=== PATIENT | female | born 1990 | race Caucasian/White ===

== ENCOUNTER 2019-04-04 12:29 | Inpatient (IN) ==
[2019-04-04] MEDS ORDERED: Ondansetron ODT 4 MG TAB.RAPDIS SL ONE (13:20)
[2019-04-04] MEDS ORDERED: Ketorolac 15 MG/ML VIAL IM ONE (13:20)
[2019-04-04] MEDS ORDERED: Tdap (Boostrix) Vaccine 0.5 ML SYRINGE IM ONE (13:20)
[2019-04-04] MEDS ORDERED: Piperacillin/Tazobactam 3.375 GM in 0.9 % Sodium Chloride Mini Bag 100 ML IVPB ONE (13:22)
--- NOTE | 2019-04-04 13:25 | Emergency Department Note ---
Disposition Clinical Impression: Cellulitis Qualifiers: Site of cellulitis: extremity Site of cellulitis of extremity: finger Laterality: left Qualified Code(s): L03.012 - Cellulitis of left finger Disposition: Admitted As Inpatient Condition: Fair Referrals: Jean Polk PAC [Primary Care Provider] - Forms: ED Satisfaction Letter Time of Disposition: 15:00 Extremity Problem HPI - General Chief complaint: ED Extremity Problem,Nontraumatic Stated complaint: Left pointer finger black Time Seen by Provider: 04/04/19 12:42 Source: patient Mode of arrival: private vehicle Limitations: no limitations Nursing Notes Reviewed: Yes Vital Signs Reviewed: Yes - History of Present Illness Pt Subjective Complaint: extremity pain, extremity swelling Onset (ago): month(s) Consistency: Worsening Injury Location: left, upper extremity (index finger) Pain Scale: 10 Quality: burning, sharp Radiation: proximal Improves with: nothing Worsens with: range of motion, palpation, use Associated symptoms: Reports: fever, change in appearance, swelling, redness. Denies: chest pain, shortness of breath, abdominal pain Context: other (Hx of IVDA, evaluated here on Sunday by Ortho. Was supposed to be admitted but refused. Home on Bactrim. was supposed to F/U in office on but was arrested. Arrives in police custody.) - Related Data Home Medications Medication Instructions Recorded Confirmed Buprenorphine HCl/Naloxone HCl 1 each SL BID 04/04/19 04/04/19 [Suboxone 8 mg-2 mg Sl Film] Gabapentin [Neurontin] 800 mg PO TID 04/04/19 04/04/19 Allergies Allergy/AdvReac Type Severity Reaction Status Date / Time sertraline [From Zoloft] AdvReac Hallucinati Verified 03/31/19 18:05 ng All systems ED: reviewed and negative except as stated. Review of Systems: As Per HPI Constitutional: Reports: fever. Denies: chills, weakness Cardiovascular: Denies: chest pain, palpitations Respiratory: Denies: dyspnea Gastrointestinal: Reports: nausea. Denies: abdominal pain, vomiting, diarrhea Musculoskeletal: Reports: as per HPI, joint swelling, arthralgia. Denies: back pain, neck pain Neurological: Reports: numbness (index finger). Denies: weakness Hematological/Lymphatic: Denies: easy bleeding, easy bruising, lymphadenopathy Past Medical History - Past Medical History Attestation: Yes The following information was validated with the patient. 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 Absent: scleral icterus, conjunctival injection, periorbital swelling - ENT ENT exam: mucous membranes moist - Neck Neck exam: Present: normal inspection, full ROM, trachea midline. Absent: meningismus - Respiratory Respiratory exam: Present: normal lung sounds bilaterally. Absent: respiratory distress - Cardiovascular Cardiovascular exam: Present: regular rate, normal rhythm, normal heart sounds. Absent: systolic murmur, diastolic murmur - Extremities Exam Extremities exam: Present: tenderness, normal capillary refill - Expanded Upper Extremity Exam Shoulder exam: Present: normal inspection, full ROM Arm exam: Present: normal inspection Elbow exam: Present: normal inspection, full ROM Forearm/Wrist exam: Present: normal inspection, full ROM. Absent: tenderness, swelling, erythema Hand exam: Present: tenderness, swelling, erythema Hand L/R front image: 1 - other (necrotic appearing, decreased sensation, dry) Hand L/R back image: 1 - necrotic appearing, decreased sensation, dry 2 - erythematous, mild edema Neuromotor exam: Normal: wrist extension, thumb opposition, thumb IP flexion, thumb adduction, fingers 2-5 abduction Neurosensory exam: Normal: radial nerve, ulnar nerve, median nerve Hand tendon exam: Normal: flexor digitorum profundus (location), flexor digitorum superficialis (location), extensor tendon (location) Vascular exam: Normal: capillary refill, radial pulse, ulnar pulse - Neurological Exam Neurological exam: Present: alert, oriented X3, CN II-XII intact - Psychiatric Psychiatric exam: Present: normal affect, normal mood - Skin Skin exam: Present: warm, dry, intact, normal color Course Course Narrative: Patient was seen here earlier this week by ortho while in the ED. She was supposed follow-up on , but instead was arrested. She returns today in the custody of a electric meter tester helper's deputy. She complains of increased pain. The entire finger is now edematous and mildly erythematous. The necrotic appearance of the distal portion is unchanged. She has decreased sensation to light touch in the distal phalanx as well. She describes fever, but is currently afebrile. Vitals are normal. Labs and repeat x-ray ordered. Antibiotics ordered PICC team called as patient has very poor vascular access and will likely need long-term IV antibiotics. Case discussed with Dr. Osborne. He recommends admission and he will see the patient today. He will most likely take her to the OR today. Case discussed with hospitalist. Patient admitted Vital Signs Temperature 98.6 F 04/04/19 12:36 Pulse Rate 80 04/04/19 12:36 Respiratory Rate 18 04/04/19 12:36 Blood Pressure 145/89 04/04/19 12:36 O2 Sat by Pulse Oximetry 99 04/04/19 12:36 Temperature 98.6 F 04/04/19 12:36 Pulse Rate 80 04/04/19 12:36 Respiratory Rate 18 04/04/19 12:36 Blood Pressure 145/89 04/04/19 12:36 O2 Sat by Pulse Oximetry 99 04/04/19 12:36 Oxygen Delivery Oxygen Delivery Room Air
[2019-04-04 15:10] LABS: Basophils % 0.3 %; Eosinophils % 0.1 %; Hematocrit 36.2 % (35.3-44.9); Hemoglobin 11.7 g/dL (11.5-15.4); Immature Granulocytes % 0.3 % (0-4); Lymphocytes # 2.8 K/mcL (0.6-4.6); Lymphocytes % 31.6 %; Mean Corpuscular HGB Conc 32.3 g/dL (31.6-35.5); Mean Corpuscular Hemoglobin 26.9 pg (28.0-33.3); Mean Corpuscular Volume 83.2 fL (83.0-100.0); Mean Platelet Volume 9.5 fL (9.4-12.4); Monocytes # 0.6 K/mcL (0.0-1.3); Neutrophils # 5.4 K/mcL (1.6-8.9); Platelet Count 320 K/mcL (140-400); Red Blood Count 4.35 M/mcL (3.82-4.97); Red Cell Distribution Width 15.6 % (11.5-14.5); Segmented Neutrophils % 60.7 %
[2019-04-04 15:18] LABS: INR 1.2; Prothrombin Time 13.1 Seconds (9.4-12.1)
[2019-04-04] MEDS ORDERED: Naloxone 0.4 MG/ML INJ IVP PRN ×2 (15:24→20:03)
[2019-04-04 15:29] LABS: BUN/Creatinine Ratio 17 (6-26); Blood Urea Nitrogen 8 mg/dL (6-20); Calcium 9.9 mg/dL (8.6-10.3); Carbon Dioxide 25 mEq/L (23-29); Chloride 103 mEq/L (98-107); Glucose 95 mg/dL (70-105); Osmolality,Calculated 282 (280-300); Potassium 3.5 mEq/L (3.5-5.1); Sodium 137 mEq/L (136-145); eGFR For African Americans > 60 (> 60); eGFR For Non-African Americans > 60 (> 60)
[2019-04-04] MEDS ORDERED: 0.9 % Sodium Chloride 1,000 ML IVC SCH (15:30)
--- NOTE | 2019-04-04 15:43 | Internal Med History&Physical ---
Date of Encounter: 04/04/19 Time of Encounter: 15:00 Internal Medicine - H&P: HPI Chief complaint: cellulitis and infection of finger with failed outpatient therapy History of present illness: Ms. Gutiérrez is a 28 year old female with pmh of polysubstance abuse presenting with complaints of an infected left index finger of about 1 month duration. Patient says she had her nails done about a month ago where they glued cosmetic nails to her fingers and she began to have swelling in her left index finger. She called her PCP who gave her a 7 day course of bactrim which she recently completed but she says swelling worsened and she came to the ER, where she was also discharged after being seen by ortho because she wouldn't stay to be admitted. Swelling progressively got worse and she has been having chills and nausea, along with some drainage and discoloration of the finger and that's why she came back to the ER In the ER, she was started on vanc and zosyn and has been seen by ortho. [facility] She is being admitted for further management Past Med Surg Social Fam HX - Past Medical History Medical history: asthma, fibromyalgia Additional medical history: endometriosis Psychiatric history: no psych history - Past Surgical History Surgical History: cholecystectomy, other (Tubes inner ears, laparoscopic fulguration of endometriosis, knee surgery.) Additional surgical history: LEEP,. 3 knee surgeries,. D & C,. tubes in ears. uterine ablasion - Social History Smoking Status: Current every day smoker Smokeless Tobacco Status: No Alcohol use: none Drug use: none - Family History Father Hx Family Cancer: Yes - Additional Family History Additional family history: Family history reviewed and non contributory Internal Medicine - H&P: Meds Gabapentin [Neurontin] 800 mg PO TID 04/04/19 [History] Sulfamethoxazole/Trimeth DS [Bactrim DS] 1 each PO BID 04/04/19 [History] cephALEXin [Keflex] 500 mg PO TID 04/04/19 [History] Allergy/AdvReac Type Severity Reaction Status Date / Time sertraline [From Zoloft] AdvReac Hallucinati Verified 03/31/19 18:05 ng All Systems PM: A 10-system review of systems was performed and is negative for pertinent findings except as documented above in the HPI. - Constitutional Constitutional: no chills, no fever(s), no night sweats - EENT Eyes: no change in vision, no discharge, no pain, no photophobia Ears: no ear discharge, no ear pain, no tinnitus Nose, mouth and throat: no dysphagia, no nasal discharge, no neck pain, no sore throat - Cardiovascular Cardiovascular ROS IM: no chest pain, no diaphoresis, no dyspnea, no lightheadedness, no palpitations, no syncope - Respiratory Respiratory: no cough, no dyspnea, no wheezing, no excessive phlegm production - Gastrointestinal Gastrointestinal: no abdominal pain, no diarrhea, no hematemesis, no hematochezia, no melena, no nausea, no vomiting - Genitourinary Genitourinary: no change in urinary stream, no dysuria, no flank pain, no hematuria - Musculoskeletal Musculoskeletal ROS IM: no numbness, no tingling Additional comments: infected finger - Integumentary Integumentary IM: no rash, no unusual bruising - Neurological Neurological ROS: no confusion, no convulsions, no focal weakness, no numbness, no tingling, no tremor(s) - Hematologic/Lymphatic Hematologic/Lymphatic: no easy bruising - Constitutional Vitals: Temp Pulse Resp BP Pulse Ox 98.6 F 71 16 134/66 100 04/04/19 12:36 04/04/19 15:04 04/04/19 15:04 04/04/19 15:04 04/04/19 15:04 Exam: Discolored left index finger Swollen and tender - Head Head exam: Present: atraumatic, normocephalic - Eye Eye exam: Present: PERRL, conjuntiva pink, sclera anicteric Pupils: Present: PERRL - Neck Neck exam general surgery: Present: supple, trachea midline. Absent: lymphaden opathy - Respiratory Respiratory exam: Present: CTAB. Absent: accessory muscle use, rales, rhonchi, wheezes - Cardiovascular Cardiovascular exam: Present: RRR, +S1, +S2. Absent: diastolic murmur, gallop, rubs, systolic murmur - GI/Abdominal GI/Abdominal exam: Present: normal bowel sounds, soft, no peritoneal signs. Absent: distended, tenderness - Extremities Exam Extremities exam: Present: warm, radial pulses palpable and symmetrical. A bsent: calf tenderness, cyanotic, pedal edema - Neurological Exam Neurological exam: Present: CN II-XII intact, oriented X3, no focal deficits. Absent: pronater drift, facial droop, speech deficit - Skin Skin exam: Present: dry, intact Internal Med - H&P Results - Labs CBC & Chem 7: 04/04/19 14:48 04/04/19 14:48 Labs: Short CBC 04/04/19 Range/Units 14:48 WBC 9.0 (4.3-11.1) K/mcL Hgb 11.7 (11.5-15.4) g/dL Hct 36.2 (35.3-44.9) % Plt Count 320 (140-400) K/mcL Neutrophils # 5.4 (1.6-8.9) K/mcL BMP 04/04/19 14:48 Sodium 137 Potassium 3.5 Chloride 103 Carbon Dioxide 25 BUN 8 Creatinine 0.48 L Glucose 95 Calcium 9.9 - Impressions ITS Impressions Finger X-Ray 04/04/19 13:20 IMPRESSION: 1. Diffuse soft tissue swelling of the left 2nd finger, compatible with underlying infection. No evidence of osteomyelitis or fracture. D/ / 04/04/2019 13:48:21 Moshe Torres MD / [facility] Interpreting Provider: Moshe Torres MD - Assessment and Plan (1) Cellulitis of finger of left hand Current Visit: Yes Status: Acute Assessment and plan: Left finger cellulitis with failed outpatient therapy Obtain cultures. Start on vanc and zosyn Ortho consulted and plan for surgery tonight (2) Polysubstance abuse Current Visit: Yes Status: Acute Assessment and plan: Stable. (3) DVT prophylaxis Current Visit: Yes Status: Acute Assessment and plan: Heparin sc - Time Spent With Patient Total time spent is greater than 50% in coordination of care (as documented) at patient's floor/unit and/or counseling patient:
[2019-04-04] MEDS ORDERED: Acetaminophen 325 MG TABLET PO PRN (15:51)
[2019-04-04] MEDS ORDERED: Ondansetron 4 MG/2 ML VIAL IVP PRN ×2 (15:51→20:03)
[2019-04-04] MEDS ORDERED: Piperacillin/Tazobactam 3.375 GM in 0.9 % Sodium Chloride Mini Bag 100 ML IVPB SCH (16:00)
--- NOTE | 2019-04-04 17:56 | Orthopedic Consult Note ---
Date of Encounter: 04/04/19 Time of Encounter: 17:54 Assessment and Plan (1) Gangrene of finger Current Visit: Yes Status: Acute I did have a long discussion with the patient regarding the diagnosis. She has dry gangrenous changes to the left index finger tip with surrounding redness, likely to some degree cellulitis. I did discuss treatment options and my recommendation is for left index fingertip amputation as I do not feel that the index fingertip is salvageable. I anticipate likely needing to amputate through the middle phalanx distal to the FDS insertion. She may require multiple debridements. The risks discussed included but were not limited to stiffness, bleeding, infection, blood clots, damage to neurovascular structures, tendons, ligaments, and bone. Also discussed was the risk of continued symptoms and possible need for further procedures. I did discuss the anesthesia risks including stroke, heart attack, and . I did discuss the reasonable, foreseeable postoperative course with the patient. The patient did wish to proceed and consent was obtained. I have reviewed each of the pertinent components of this chart and any other pertinent medical component(s) including but not limited to pertinent application of the chief complaint, history of present illness, current medication, medical history, allergies, family history, medical history, surgical history, social history, review of systems, vital signs, and any other portion of the pertinent patient medical record directly or indirectly involved with this patient care that is pertinent based on my medical decision process. JUAN Dejesus History of Present Illness HPI: Ms. Gutiérrez is a 28 year old female currently admitted to the hospitalist. She was seen in the apartment just a couple of days ago where my recommendation was for debridement of the left index fingertip due to a chronic paronychial infection with fingertip necrosis. She did decline management and wished to follow up in the office. She does indicate that she became incarcerated. She returns to the emergency department for further evaluation and management. She complains of isolated pain to the tip of the left index finger, sharp and achy in nature and worse with use and movement and better with rest. There is altered sensation at the tip of the index finger. No other complaints. She denies any feelings of illness. No other numbness, tingling, or other associated signs or symptoms or modifying factors. Past Med Surg Social Fam HX - Past Medical History Medical history: asthma, fibromyalgia Additional medical history: endometriosis Psychiatric history: no psych history - Past Surgical History Surgical History: cholecystectomy, other (Tubes inner ears, laparoscopic ful guration of endometriosis, knee surgery.) Additional surgical history: LEEP,. 3 knee surgeries,. D & C,. tubes in ears. uterine ablasion - Social History Smoking Status: Current every day smoker Smokeless Tobacco Status: No Alcohol use: none Drug use: none - Family History Father Hx Family Cancer: Yes Medications and Allergies Gabapentin [Neurontin] 800 mg PO TID 04/04/19 [History] Sulfamethoxazole/Trimeth DS [Bactrim DS] 1 each PO BID 04/04/19 [History] cephALEXin [Keflex] 500 mg PO TID 04/04/19 [History] Allergy/AdvReac Type Severity Reaction Status Date / Time sertraline [From Zoloft] AdvReac Hallucinati Verified 03/31/19 18:05 ng All Systems Reviewed: Constitutional -The patient denies any fevers, chills, or feelings of illness Musculoskeletal -The patient denies any joint pains, swelling, muscle aches Physical Exam - Constitutional Vitals: Temp Pulse Resp BP Pulse Ox 97.7 F 91 15 125/79 98 04/04/19 16:08 04/04/19 16:08 04/04/19 16:08 04/04/19 16:08 04/04/19 16:08 CONSTITUTIONAL -Vitals reviewed -The patient is well developed, well nourished, well groomed PSYCHIATRIC -Fully alert and oriented -Pleasant mood LEFT UPPER EXTREMITY The left index finger is necrotic at the tip with an increasing margin of dry gangrenous changes to about the level of the distal interphalangeal joint. Mild surrounding redness. Generalized swelling to the index finger. No purulence. Stiffness due to pain and swelling. The tips of the other digits are slightly c ool but with good capillary refill. The patient can actively flex and extend the other digits, extend the thumb, cross the index and long fingers, make an okay sign, and oppose the thumb. The fingertips have normal sensation. Diagnostic Imaging: I did personally review and interpret x-rays left index finger do not show any bony involvement. Results - Labs Result Diagrams: 04/04/19 14:48 04/04/19 14:48 Labs: Abnormal lab results MCH 26.9 pg (28.0-33.3) L 04/04/19 14:48 RDW 15.6 % (11.5-14.5) H 04/04/19 14:48 ESR 21 mm/hr (0-15) H 04/04/19 14:48 PT 13.1 Seconds (9.4-12.1) H 04/04/19 14:48 Creatinine 0.48 mg/dL (0.60-1.20) L 04/04/19 14:48 H & H 04/04/19 Range/Units 14:48 Hgb 11.7 (11.5-15.4) g/dL Hct 36.2 (35.3-44.9) % All other labs normal. Consult Discharge Plan - Plan Referrals: Jean Polk, PAC [Primary Care Provider] -
--- NOTE | 2019-04-04 17:56 | Anesthesia Evaluation PreOp ---
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, POLYSUBSTANCE ABUSE, ON SUBOXONE) Other Medical History: Denies Any Significant HX Anesthesia History: No Prior Anesthetic Complications, Past Anesthesia Test: Negative (04/04) Alcohol Use: none Drug use: none Medications and Allergies Gabapentin [Neurontin] 800 mg PO TID 04/04/19 [History] Sulfamethoxazole/Trimeth DS [Bactrim DS] 1 each PO BID 04/04/19 [History] cephALEXin [Keflex] 500 mg PO TID 04/04/19 [History] Allergy/AdvReac Type Severity Reaction Status Date / Time sertraline [From Zoloft] AdvReac Hallucinati Verified 03/31/19 18:05 ng - Meds/Allergy Pre-op Review Medications Reviewed: Yes Allergies Reviewed: Yes Anesthesia Results - Labs 04/04/19 14:48 04/04/19 14:48 Anesthesia Exam Vital Signs/O2 Sat/Glucose, Most Recent Temp Pulse Resp BP Pulse Ox 97.7 F 91 15 125/79 98 04/04/19 16:08 04/04/19 16:08 04/04/19 16:08 04/04/19 16:08 04/04/19 16:08 Blood Glucose* 124 Weight: 82 KG - BMI 28 NPO (# of Hours): 8 - HEENT Mallampati: I Teeth: Edentulous - Cardiac Rhythm: Regular - Pulmonary Breath Sounds: bilateral Clear Anesthesia Assess/Plan ASA Score: 2 Anesthetic Plan: MAC Monitoring Plan: Standard Monitors Recovery Plan: PACU (PHASE 2 APPROPRIATE)
[2019-04-04] MEDS ORDERED: *HR* Midazolam HCl 2 MG/2 ML VIAL ONE (17:58)
[2019-04-04] MEDS ORDERED: *HR* Propofol 200 MG/20 ML VIAL IVP ONE (17:58)
[2019-04-04] MEDS ORDERED: *HR* Heparin 5,000 UNIT/ML VIAL SQ SCH (18:00)
[2019-04-04] MEDS ORDERED: Dexamethasone 4 MG/ML VIAL ONE (18:06)
[2019-04-04] MEDS ORDERED: Ondansetron 4 MG/2 ML VIAL ONE (18:06)
[2019-04-04] MEDS ORDERED: *HR* FentaNYL (PF) 100 MCG/2 ML VIAL ONE (18:11)
[2019-04-04] MEDS ORDERED: Bupivacaine/EPI 1:200k 0.5%PF 10 ML VIAL ONE (18:16)
[2019-04-04] MEDS ORDERED: Lidocaine/EPI 1:100k 1% 20 ML VIAL ONE (18:16)
[2019-04-04] MEDS ORDERED: Lidocaine 1% 20 ML MDV ONE (18:16)
[2019-04-04] MEDS ORDERED: Lidocaine -MPF 1% 5 ML AMPUL ONE (18:32)
[2019-04-04] MEDS ORDERED: Ketorolac 30 MG/ML VIAL ONE (18:51)
--- NOTE | 2019-04-04 19:22 | Orthopedic Operative Note ---
Date of procedure: 04/04/19 Procedure: OPERATIVE REPORT SURGEON: Eleazar Tavera MD PREOPERATIVE DIAGNOSIS: Left index fingertip gangrene POSTOPERATIVE DIAGNOSIS: Left index fingertip gangrene PROCEDURE: Left index fingertip amputation ANESTHESIA: Gen. anesthesia SPECIMENS: Left index fingertip for permanent in formalin; left index finger swabs PREOPERATIVE NOTE The surgical plan was reviewed with the patient. The risks, benefits, alternatives, and potential complications of this procedure were discussed with the patient including injury to veins, arteries, nerves, tendons, ligaments, and bone. Also discussed were the risks of infection, bleeding, pain, blood clots, the possible need for a blood transfusion, the possible need for further procedures, heart attack, stroke, and . Additional risks include the need for further debridement. All of this was explained in simple terms, and the patient verbalized understanding and wished to proceed. Consent was given to proceed with surgery. PROCEDURE: The patient was seen in the preoperative holding area where the identify and the consent were confirmed. The left index finger was marked. Final questions were answered. The patient was brought back to the operating room and placed supine on the operating room table. A huddle was performed with the patient and all vital surgical team members confirming patient identity, the correct procedure, and the correct operative site. Gen. anesthesia was administered. The operative extremity was prepped and draped in the usual sterile fashion. A surgical time out was performed immediately preceding the incision with all personnel in the operating room to confirm patient identity, the correct opera tive site and extremity, correct radiographic studies, availability of appropriate surgical equipment, and agreement on the planned procedure. The tourniquet was inflated without exsanguination. A fishmouth incision was made just proximal to the area of dry gangrenous changes. Full-thickness flaps were elevated and subperiosteal dissection made on the middle phalanx. Using a sagittal saw the finger is amputated through the bone distal to the insertion of the FDS. The fingertip was placed on the back table for specimen in formalin. The wound bed was swabbed for culture. The wound bed was healthy in appearance without any necrotic tissue or concern for significant infection. 3 L of saline were washed through the wound bed and this was then loosely closed over a small [place] drain without tension. A soft, sterile dressing was applied. The instrument, sponge, and needle counts were correct after wound closure. POST OPERATIVE PLAN: Daily dressing changes, anticipate removing the [place] drain on Sunday. Antibiotics per the primary team. Was there an surgical assistant present: No Estimated blood loss (cc): 1
--- NOTE | 2019-04-04 20:04 | Anesthesia Evaluation Post Op ---
Date of Encounter: 04/04/19 Time of Encounter: 19:48 - Discharge PostOp Status: Transfer Patient to floor (Patient's vital signs have been reviewed. Patient is stable postoperatively and has adequately recovered from anesthesia. Patient is determined to have stable airway patency and respiratory function including respiratory rate and oxygen saturation. Patient has a stable heart rate, blood pressure and adequate hydration. Patients mental status is acceptable. Patients temperature is appropriate. Pain and nausea are adequately controlled)
[2019-04-04] MEDS: Gabapentin 400 MG CAPSULE PO SCH (20:52)
[2019-04-04] MEDS: 0.9 % Sodium Chloride 1,000 ML IVC SCH (20:54)
[2019-04-04] MEDS ORDERED: Gabapentin 400 MG CAPSULE PO SCH (21:00)
[2019-04-04] MEDS ORDERED: NON-FORMULARY MEDICATION 1 EACH EACH (Buprenorphine Hcl/Naloxone Hcl [Suboxone 8 Mg-2 Mg S SL SCH (21:00)
[2019-04-04] MEDS: Piperacillin/Tazobactam 3.375 GM in 0.9 % Sodium Chloride Mini Bag 100 ML IVPB SCH (23:34)
[2019-04-05] MEDS: Acetaminophen 325 MG TABLET PO PRN ×3 (01:30→20:09)
[2019-04-05] MEDS ORDERED: Acetaminophen IV 1,000 MG/100 ML INFUS..BTL IVPB ONE (01:35)
[2019-04-05] MEDS ORDERED: traMADol 50 MG TABLET PO ONE (01:36)
[2019-04-05 05:09] LABS: BUN/Creatinine Ratio 22 (6-26); Blood Urea Nitrogen 11 mg/dL (6-20); Calcium 8.8 mg/dL (8.6-10.3); Carbon Dioxide 22 mEq/L (23-29); Chloride 106 mEq/L (98-107); Glucose 145 mg/dL (70-105); Magnesium 1.9 mg/dL (1.6-2.6); Osmolality,Calculated 286 (280-300); Potassium 3.7 mEq/L (3.5-5.1); Sodium 137 mEq/L (136-145); eGFR For African Americans > 60 (> 60); eGFR For Non-African Americans > 60 (> 60)
[2019-04-05 05:46] LABS: Basophils % 0.2 %; Hematocrit 32.6 % (35.3-44.9); Hemoglobin 10.5 g/dL (11.5-15.4); Immature Granulocytes % 0.4 % (0-4); Lymphocytes # 1.9 K/mcL (0.6-4.6); Lymphocytes % 18.3 %; Mean Corpuscular HGB Conc 32.2 g/dL (31.6-35.5); Mean Corpuscular Hemoglobin 26.6 pg (28.0-33.3); Mean Corpuscular Volume 82.5 fL (83.0-100.0); Mean Platelet Volume 9.9 fL (9.4-12.4); Monocytes # 0.5 K/mcL (0.0-1.3); Monocytes % 4.9 %; Neutrophils # 7.9 K/mcL (1.6-8.9); Platelet Count 305 K/mcL (140-400); Red Blood Count 3.95 M/mcL (3.82-4.97); Red Cell Distribution Width 15.8 % (11.5-14.5); Segmented Neutrophils % 76.2 %; White Blood Count 10.4 K/mcL (4.3-11.1)
[2019-04-05] MEDS: 0.9 % Sodium Chloride 1,000 ML IVC SCH ×2 (05:47→14:04)
[2019-04-05] MEDS: *HR* Heparin 5,000 UNIT/ML VIAL SQ SCH ×2 (05:48→17:23)
--- NOTE | 2019-04-05 09:57 | Orthopedics Progress Note ---
Date of Encounter: 04/05/19 Time of Encounter: 09:55 - Assessment and Plan (1) Gangrene of finger Current Visit: Yes Status: Acute Subjective Interval history: S: Expected pain to the left index fingertip O: Afebrile on the vital signs are stable The drain did come out with the dressing The wound was mild bloody drainage Stitches are intact She is able to flex and extend at the proximal interphalangeal joint Fingertip is sensate and well-perfused A: Post-amputation of the left index fingertip P: At this point my recommendation is 24 hours of IV antibiotics and I anticipate discharge tomorrow on an oral antibiotic Follow up on cultures Daily dressing changes Objective Vital signs: Vital Signs Temp Pulse Resp BP Pulse Ox 04/05/19 07:53 97 04/05/19 07:42 98.1 F 46 15 111/67 97 04/04/19 23:25 77 18 128/80 94 04/04/19 22:25 94 18 127/84 95 04/04/19 21:25 56 18 130/77 95 04/04/19 20:55 62 18 136/77 95 04/04/19 20:25 98.4 F 71 18 131/78 99 04/04/19 20:10 97.7 F 59 18 133/75 99 04/04/19 19:48 65 16 126/85 96 04/04/19 19:37 54 16 162/92 97 04/04/19 19:27 63 16 155/98 100 04/04/19 19:17 98.6 F 58 16 149/118 99 04/04/19 16:08 97.7 F 91 15 125/79 98 04/04/19 15:04 71 16 134/66 100 04/04/19 12:36 98.6 F 80 18 145/89 99 Intake and Output 04/04/19 04/05/19 04/05/19 23:59 07:59 15:59 Intake Total 690 / 690 300 / 300 Output Total Balance 689 / 689 300 / 300 Intake: IV Fluids 450 / 450 100 / 100 Zosyn 3.375 GM In 0.9 % Sodium 200 / 200 100 / 100 Chloride (Mini-Bag +) 100 ML @ 25 mls/hr IVPB Q8HR [facility] Rx#: [id number] Vancocin 1,250 MG In 0.9 % 250 / 250 Sodium Chloride 250 ML @ 167 mls/hr IVPB ONCE ONE Rx#: [id number] Oral 240 / 240 200 / 200 Output: Estimated Blood Loss Other: # Voids 2 Blood Glucose* 124 - Labs CBC & BMP: 04/05/19 03:55 04/05/19 03:45 Labs: Abnormal lab results Hgb 10.5 g/dL (11.5-15.4) L 04/05/19 03:55 Hct 32.6 % (35.3-44.9) L 04/05/19 03:55 MCV 82.5 fL (83.0-100.0) L 04/05/19 03:55 MCH 26.6 pg (28.0-33.3) L 04/05/19 03:55 RDW 15.8 % (11.5-14.5) H 04/05/19 03:55 ESR 21 mm/hr (0-15) H 04/04/19 14:48 PT 13.1 Seconds (9.4-12.1) H 04/04/19 14:48 Carbon Dioxide 22 mEq/L (23-29) L 04/05/19 03:45 Creatinine 0.49 mg/dL (0.60-1.20) L 04/05/19 03:45 Glucose 145 mg/dL (70-105) H 04/05/19 03:45 Consult Discharge Plan - Plan Referrals: Eleazar Tavera MD [Partnered Physician] - Jean Polk, PAC [Primary Care Provider] -
[2019-04-05] MEDS: Gabapentin 400 MG CAPSULE PO SCH ×3 (11:20→20:09)
[2019-04-05] MEDS: Piperacillin/Tazobactam 3.375 GM in 0.9 % Sodium Chloride Mini Bag 100 ML IVPB SCH ×3 (11:21→23:53)
--- NOTE | 2019-04-05 13:50 | Internal Med Progress Note ---
Hospitalist Progress Note - Encounter Date of Encounter: 04/05/19 Time of Encounter: 10:20 - Subjective Interval History: Patient was seen this morning. She had moderate pain from her surgery as noted. She is requesting her Suboxone to be started. - Exam Vitals: Temp Pulse Resp BP Pulse Ox 98.8 F 54 16 137/85 99 04/05/19 11:09 04/05/19 11:09 04/05/19 11:09 04/05/19 11:04/05/19 11:09 Exam: General: Patient is alert, oriented 3. Head: Atraumatic, normal inspection, normocephalic. Eye: EOMI, PERRLA. ENT: Mucous membranes moist. Neck: Normal inspection, Respiratory: No respiratory distress, rhonchi, or wheezes noted. Cardiovascular: Regular rate and regular rhythm, S1 and S2 audible. No murmurs, rubs, or gallops. GI: Soft, nondistended, normal bowel sounds. Extremities:left hand dressing Neurological: Alert, oriented 3, no focal deficits. Psychiatric: normal affect, normal mood. Skin: Dry, intact, warm. Normal color. No rashes. - Assessment and Plan (1) Cellulitis of finger of left hand Current Visit: Yes Status: Acute (2) DVT prophylaxis Current Visit: Yes Status: Acute (3) Polysubstance abuse Current Visit: Yes Status: Acute - Summary of Assessment and Plan Summary of Assessment and Plan: gangrene of the left index finger: s/p partial amputation pod-1. Orthopedic surgery is following. Wound cultures are still pending. Patient is afebrile, hds. Continue renally dosed vancomycin and Zosyn. Polysubstance abuse: Used to be on suboxone. As, per pharmacy, last refill was done in [place]. Patient is so adamant that she takes it. Spoke with pharmacy who will talk to the patient and send for confirmation. Anemia: Likely postoperative acute loss anemia. Hemoglobin stable. DVT prophylaxis: Subcutaneous heparin I reviewed independently all laboratory workup, pertinent images including x- rays and CT scans. I also reviewed independently and EKGs and my findings are in the body of my assessment and plan. I ordered the laboratory workup and images myself. I discussed finding with patient's, their families, RN's and consultants involved in the care of the patient. - Time Spent with Patient Total time spent is greater than 50% in coordination of care (as documented) at patient's floor/unit and/or counseling patient: Plan of Care Discussed with: patient Internal Medicine: Result - Labs CBC & Chem 7: 04/05/19 03:55 04/05/19 03:45 Labs: Short CBC 04/04/19 04/05/19 Range/Units 14:48 03:55 WBC 9.0 10.4 (4.3-11.1) K/mcL Hgb 11.7 10.5 L (11.5-15.4) g/dL Hct 36.2 32.6 L (35.3-44.9) % Plt Count 320 305 (140-400) K/mcL Neutrophils # 5.4 7.9 (1.6-8.9) K/mcL BMP 04/04/19 04/05/19 14:48 03:45 Sodium 137 137 Potassium 3.5 3.7 Chloride 103 106 Carbon Dioxide 25 22 L BUN 8 11 Creatinine 0.48 L 0.49 L Glucose 95 145 H Calcium 9.9 8.8 - ABG Interpretation ABG results: PT/INR, D-dimer PT 13.1 Seconds (9.4-12.1) H 04/04/19 14:48 - Impressions Impressions Finger X-Ray 04/04/19 13:20 IMPRESSION: 1. Diffuse soft tissue swelling of the left 2nd finger, compatible with underlying infection. No evidence of osteomyelitis or fracture. D/ / 04/04/2019 13:48:21 Moshe Torres MD / [facility] Interpreting Provider: Moshe Torres MD Finger X-Ray 04/05/19 10:44 IMPRESSION: Intraprocedural fluoroscopic spot images as above. See separate procedure report for more information. D/ / Natan Reese MD / Natan Reese MD Interpreting Provider: Natan Reese MD Fluoroscopy 04/05/19 10:44 IMPRESSION: Intraprocedural fluoroscopic spot images as above. See separate procedure report for more information. D/ / Natan Reese MD / Natan Reese MD Interpreting Provider: Natan Reese MD Consult Discharge Plan - Plan Referrals: Eleazar Tavera MD [Partnered Physician] - Jean Polk, PAC [Primary Care Provider] -
[2019-04-05] MEDS: Ketorolac 30 MG/ML VIAL IVP PRN ×2 (17:35→23:52)
[2019-04-05] MEDS: *HR* Buprenorphine HCl 8 MG TAB.SUBL SL SCH (18:40)
[2019-04-05] MEDS: Nicotine 21 MG PATCH.TD24 TD SCH (22:42)
[2019-04-06] MEDS: Acetaminophen 325 MG TABLET PO PRN ×3 (02:14→16:47)
[2019-04-06] MEDS: 0.9 % Sodium Chloride 1,000 ML IVC SCH ×3 (02:14→22:34)
[2019-04-06] MEDS: Ketorolac 30 MG/ML VIAL IVP PRN ×2 (05:47→12:26)
[2019-04-06] MEDS: *HR* Heparin 5,000 UNIT/ML VIAL SQ SCH ×2 (05:48→16:51)
[2019-04-06] MEDS ORDERED: Nicotine 21 MG PATCH.TD24 TD SCH (09:00)
[2019-04-06] MEDS: *HR* Buprenorphine HCl 8 MG TAB.SUBL SL SCH (09:28)
[2019-04-06] MEDS: Gabapentin 400 MG CAPSULE PO SCH ×3 (09:30→21:35)
[2019-04-06] MEDS: Piperacillin/Tazobactam 3.375 GM in 0.9 % Sodium Chloride Mini Bag 100 ML IVPB SCH ×3 (09:30→23:56)
--- NOTE | 2019-04-06 11:33 | Internal Med Progress Note ---
Hospitalist Progress Note - Encounter Date of Encounter: 04/06/19 Time of Encounter: 10:30 - Subjective Interval History: No major events overnight. Patient was seen this a.m. sHe denied fever, chills or night sweats. sHe has no nausea, vomiting or abdominal pain. Patient denied chest pain, shortness of breath or palpitation. - Exam Vitals: Temp Pulse Resp BP Pulse Ox 98.1 F 48 16 115/71 97 04/06/19 08:12 04/06/19 08:12 04/06/19 08:12 04/06/19 08:12 04/06/19 09:34 Exam: General: Patient is alert, oriented 3. Head: Atraumatic, normal inspection, normocephalic. Eye: EOMI, PERRLA. ENT: Mucous membranes moist. Neck: Normal inspection, Respiratory: No respiratory distress, rhonchi, or wheezes noted. Cardiovascular: Regular rate and regular rhythm, S1 and S2 audible. No murmurs, rubs, or gallops. GI: Soft, nondistended, normal bowel sounds. Extremities:left hand dressing Neurological: Alert, oriented 3, no focal deficits. Psychiatric: normal affect, normal mood. Skin: Dry, intact, warm. Normal color. No rashes. - Assessment and Plan (1) Cellulitis of finger of left hand Current Visit: Yes Status: Acute (2) DVT prophylaxis Current Visit: Yes Status: Acute (3) Polysubstance abuse Current Visit: Yes Status: Acute - Summary of Assessment and Plan Summary of Assessment and Plan: gangrene of the left index finger: s/p partial amputation pod-1. Orthopedic surgery is following. Wound cultures are growing GPR. Patient is afebrile, hds. Continue renally dosed vancomycin and Zosyn. Polysubstance abuse: Used to be on suboxone. Comfort and with pharmacy, continue Suboxone and it2 Anemia: Likely postoperative acute loss anemia. Hemoglobin stable. DVT prophylaxis: Subcutaneous heparin I reviewed independently all laboratory workup, pertinent images including x- rays and CT scans. I also reviewed independently and EKGs and my findings are in the body of my assessment and plan. I ordered the laboratory workup and images myself. I discussed finding with patient's, their families, RN's and consultants involved in the care of the patient. - Time Spent with Patient Total time spent is greater than 50% in coordination of care (as documented) at patient's floor/unit and/or counseling patient: Plan of Care Discussed with: patient Internal Medicine: Result - Labs CBC & Chem 7: 04/05/19 03:55 04/05/19 03:45 - ABG Interpretation ABG results: PT/INR, D-dimer PT 13.1 Seconds (9.4-12.1) H 04/04/19 14:48 Consult Discharge Plan - Plan Referrals: Eleazar Tavera MD [Partnered Physician] - Jean Polk, TIANNA [Primary Care Provider] -
--- NOTE | 2019-04-06 13:02 | Orthopedics Progress Note ---
Date of Encounter: 04/06/19 Time of Encounter: 12:59 - Assessment and Plan (1) Gangrene of finger Current Visit: Yes Status: Acute Subjective Interval history: S: Expected pain to the left index fingertip O: Afebrile on the vital signs are stable Driving but at the tip of the digit. Stitches are intact Minimal swelling of the residual index fingertip No significant redness She is able to flex and extend at the proximal interphalangeal joint with stiffness as expected Fingertip is sensate and well-perfused A: Post-amputation of the left index fingertip P: Orthopedically stable for discharge. Oral antibiotics per the primary team Follow-up with me in the office in one week for wound evaluation Objective Vital signs: Vital Signs Temp Pulse Resp BP Pulse Ox 04/06/19 09:34 97 04/06/19 08:12 98.1 F 48 16 115/71 97 04/06/19 04:15 98.7 F 53 14 99/64 97 04/05/19 20:15 94 04/05/19 19:25 98.1 F 71 16 121/79 94 04/05/19 15:40 98.7 F 59 14 124/73 94 Intake and Output 04/05/19 04/06/19 04/06/19 23:59 07:59 15:59 Intake Total 350 / 1100 1100 / 1100 Output Total 300 / 300 0 / 0 Balance 50 / 800 1100 / 1100 Intake: IV Fluids 350 / 900 1100 / 1100 0.9 % Sodium Chloride 1,000 ML 1000 / 1000 @ 100 mls/hr IVC .Q10H [facility] Rx#: [id number] Zosyn 3.375 GM In 0.9 % Sodium 100 / 300 100 / 100 Chloride (Mini-Bag +) 100 ML @ 25 mls/hr IVPB Q8HR [facility] Rx#: [id number] Vancocin 1,250 MG In 0.9 % 250 / 500 Sodium Chloride 250 ML @ 167 mls/hr IVPB Q12H [facility] Rx#: [id number] Oral 0 / 200 0 / 0 Output: Urine 300 / 300 0 / 0 Other: Weight 82.5 kg Patient Weight 04/06/19 23:59 Weight 82.5 kg - Labs CBC & BMP: 04/05/19 03:55 04/05/19 03:45 Labs: Abnormal lab results Hgb 10.5 g/dL (11.5-15.4) L 04/05/19 03:55 Hct 32.6 % (35.3-44.9) L 04/05/19 03:55 MCV 82.5 fL (83.0-100.0) L 04/05/19 03:55 MCH 26.6 pg (28.0-33.3) L 04/05/19 03:55 RDW 15.8 % (11.5-14.5) H 04/05/19 03:55 ESR 21 mm/hr (0-15) H 04/04/19 14:48 PT 13.1 Seconds (9.4-12.1) H 04/04/19 14:48 Carbon Dioxide 22 mEq/L (23-29) L 04/05/19 03:45 Creatinine 0.49 mg/dL (0.60-1.20) L 04/05/19 03:45 Glucose 145 mg/dL (70-105) H 04/05/19 03:45 Consult Discharge Plan - Plan Additional Instructions: DISCHARGE INSTRUCTIONS Dr. Tavera DISCHARGE DIAGNOSIS/PROCEDURE Left index fingertip amputation ACTIVITY: Avoid aggressive activities with arm in which you were operated. Okay to move your fingers which will be good exercise. WOUND CARE: -Take the dressing down once a day and clean the fingertip with warm, soapy water and recover with gauze and either Coban or an Earle wrap. MEDICATIONS: Take your antibiotic as prescribed by the discharging hospitalist FOLLOW-UP Follow-up with Dr. Tavera or Candy Stoddard PA-C at the office 1 week from the surgery date for a post operative evaluation. Call the office at [phone] to schedule or confirm your appointment. WHEN TO CALL THE DOCTOR OR WHEN TO SEEK CARE BEFORE YOUR APPOINTMENT 1. Excess swelling or increased numbness not made better by elevating the hand and moving the fingers. 2. Uncontrolled pain. 3. A color change in your hand or fingers. 4. Worsening redness or drainage. 5. Fevers over 100.5 degrees F or 38.1 degrees C. 6. Any symptoms that bring concern to you. Referrals: Eleazar Tavera MD [Partnered Physician] - Jean Polk PAC [Primary Care Provider] -
[2019-04-06] MEDS: Nicotine 21 MG PATCH.TD24 TD SCH (22:28)
[2019-04-07] MEDS: Ketorolac 30 MG/ML VIAL IVP PRN ×2 (00:02→07:57)
[2019-04-07] MEDS: *HR* Heparin 5,000 UNIT/ML VIAL SQ SCH (05:18)
[2019-04-07 07:18] VITALS: BP 126/84
[2019-04-07] MEDS: 0.9 % Sodium Chloride 1,000 ML IVC SCH (07:56)
[2019-04-07] MEDS: Gabapentin 400 MG CAPSULE PO SCH (07:58)
[2019-04-07] MEDS: Piperacillin/Tazobactam 3.375 GM in 0.9 % Sodium Chloride Mini Bag 100 ML IVPB SCH (07:59)
[2019-04-07] MEDS: *HR* Buprenorphine HCl 8 MG TAB.SUBL SL SCH (07:59)
--- NOTE | 2019-04-07 08:39 | Discharge Summary ---
- NOTES TO OUTPATIENT PROVIDER Notes to Outpatient Provider: Patient was admitted for left index finger gangrene status post partial amputation. Wound cultures growing enterococcus. She will be discharged on 10 days of amoxicillin a follow-up with orthopedic surgery in one week Orders not resulted at time of discharge: Pending orders 04/04/19 15:41 Blood Culture [Culture,Blood] [BC] Routine 04/04/19 20:00 Surgical Pathology [PTH] Routine 04/04/19 22:39 Culture,Anaerobic [RM] Routine Date of Encounter: 04/07/19 Time of Encounter: 08:10 - Discharge Diagnosis (1) Cellulitis of finger of left hand Priority: Primary Status: Acute (2) DVT prophylaxis Priority: Secondary Status: Acute (3) Polysubstance abuse Priority: Secondary Status: Acute Hospital course: Ms. Gutiérrez is a 28 year old female with history of polysubstance abuse who came into the hospital with left index finger cellulitis and gangrene. Orthopedic surgery was consulted and patient had her amputation with wound cultures growing enterococcus. Patient was managed initially with IV antibiotics. She remained afebrile, hemodynamically stable. She will be discharged home in stable condition to continue 10 days of amoxicillin. Follow- up with orthopedic surgery in one week. Discharge discussed with: patient - Time Spent with Patient Total time spent providing and/or coordinating discharge services: 40 MINUTES - Discharge Medications Prescriptions: Continued Gabapentin [Neurontin] 800 mg PO TID Discontinued Sulfamethoxazole/Trimeth DS [Bactrim DS] 1 each PO BID cephALEXin [Keflex] 500 mg PO TID Home Medications: Gabapentin [Neurontin] 800 mg PO TID 04/04/19 [History] Allergies/Adverse Reactions: Allergy/AdvReac Type Severity Reaction Status Date / Time sertraline [From Zoloft] AdvReac Hallucinati Verified 03/31/19 18:05 ng Date of admission: 04/04/19 15:24 Primary care physician: Jean Polk Consults: 04/04/19 13:15 Consult to PICC team [Consult to Invasive Line Access Team] [CONS] Stat Reason for Consult: iv access Line Type: Midline 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 Head: Atraumatic, normal inspection, normocephalic. Eye: EOMI, PERRLA. ENT: Mucous membranes moist. Neck: Normal inspection, Respiratory: No respiratory distress, rhonchi, or wheezes noted. Cardiovascular: Regular rate and regular rhythm, S1 and S2 audible. No murmurs, rubs, or gallops. GI: Soft, nondistended, normal bowel sounds. Extremities:left hand dressing Neurological: Alert, oriented 3, no focal deficits. Psychiatric: normal affect, normal mood. Skin: Dry, intact, warm. Normal color. No rashes. - Patient Status Disposition: Home, Self-Care Condition: Good Functional capacity at discharge: independent ambulation Overall status at discharge: patient is back to baseline - Discharge Instructions Follow Up With: Eleazar Tavera MD [Partnered Physician] - Jean Polk PAC [Primary Care Provider] - Additional Instructions: DISCHARGE INSTRUCTIONS Dr. Tavera DISCHARGE DIAGNOSIS/PROCEDURE Left index fingertip amputation ACTIVITY: Avoid aggressive activities with arm in which you were operated. Okay to move your fingers which will be good exercise. WOUND CARE: -Take the dressing down once a day and clean the fingertip with warm, soapy water and recover with gauze and either Coban or an Earle wrap. MEDICATIONS: Take your antibiotic as prescribed by the discharging hospitalist FOLLOW-UP Follow-up with Dr. Tavera or Candy Stoddard PA-C at the office 1 week from the surgery date for a post operative evaluation. Call the office at [phone] to schedule or confirm your appointment. WHEN TO CALL THE DOCTOR OR WHEN TO SEEK CARE BEFORE YOUR APPOINTMENT 1. Excess swelling or increased numbness not made better by elevating the hand and moving the fingers. 2. Uncontrolled pain. 3. A color change in your hand or fingers. 4. Worsening redness or drainage. 5. Fevers over 100.5 degrees F or 38.1 degrees C. 6. Any symptoms that bring concern to you. - Diet and Activity Activity: increase activity as tolerated, resume usual activities as tolerated Diet: regular diet
[2019-04-07] MEDS ORDERED: Aminoglycoside Consult 1 EACH MC ONE (10:32)
== END 2019-04-07 10:33 | disposition home or self-care (01) | DRG 180 ==
LOC: 3ANU 12:29 → EMEROOARM 12:29 → SUATTDRO 15:24 → 3ANU 15:45
PROVIDERS: ADMIT Internal Medicine; ATTEND Internal Medicine